=== PATIENT | female | born 1995 | race Native Hawaiian/Other Pacific Islander ===

== ENCOUNTER 2020-11-28 18:43 | Inpatient (IN) | payer OTHER ==
[2020-11-28] MEDS ORDERED: OXYTOCIN 10 UNITS/ML VIAL ONE (20:26)
[2020-11-28] MEDS ORDERED: OXYTOCIN 30 UNITS in 0.9% NS 30 UNIT/500 ML INFUS.BAG IVPB ONE (20:27)
[2020-11-28 20:32] LABS: BASO % 0.3 % (0-2.0); EOS % 0.1 % (0-4.5); HEMATOCRIT 35.7 % (32.4-45.2); HEMOGLOBIN 11.7 GM/dL (10.7-15.3); LYMPH % 15.7 % (8-40); MCH 26.5 pg (25.7-33.7); MCHC 32.8 g/dl (32.0-36.0); MEAN CELL VOLUME 80.8 fl (80-96); MEAN PLT VOLUME 7.3 fl (7.5-11.1); MONO % 6.8 % (3.8-10.2); NEUT % 77.1 % (42.8-82.8); PLATELET COUNT 350 10^3/uL (134-434); RBC 4.42 M/mm3 (3.60-5.2)
[2020-11-28 20:39] LABS: INR 1.02 (0.83-1.09); PROTHROMBIN TIME (PATIENT) 12.3 SEC (9.7-13.0)
[2020-11-28 20:41] LABS: ACTIVATED PTT 32.4 SECONDS (25.2-36.5)
[2020-11-28 20:55] LABS: CALCIUM 8.6 mg/dL (8.5-10.1)
[2020-11-28 20:56] LABS: BLOOD UREA NITROGEN 8.3 mg/dL (7-18)
[2020-11-28 20:59] LABS: CREATININE 0.6 mg/dL (0.55-1.3)
[2020-11-28] MEDS ORDERED: CITRIC ACID/SODIUM CITRATE 30 ML UNIT-DOSE CUP PO ONE (21:03)
[2020-11-28] MEDS ORDERED: ELECTROLYTE-148 SOLN 500 ML IV ONE (21:03)
[2020-11-28] MEDS ORDERED: ELECTROLYTE-148 SOLN 1,000 ML IV SCH (21:15)
[2020-11-28] MEDS ORDERED: OXYTOCIN 20 UNITS in 0.9% NS 20 UNIT/1,000 ML INFUS.BAG IV ONE (22:37)
[2020-11-28] MEDS ORDERED: SENNOSIDES/DOCUSATE COMBO (SENNA PLUS) TABLET (UD) PO PRN (22:42)
[2020-11-28] MEDS ORDERED: METHYLERGONOVINE MALEATE 0.2 MG/1 ML AMP IM PRN (22:42)
[2020-11-28] MEDS ORDERED: oxyCODONE HCL 5 MG TABLET PO PRN (22:42)
[2020-11-28] MEDS ORDERED: ACETAMINOPHEN 325 MG TABLET (FP) PO PRN (22:42)
[2020-11-29] MEDS: OXYTOCIN 20 UNITS in 0.9% NS 20 UNIT/1,000 ML INFUS.BAG IV SCH ×2 (00:06→08:00)
[2020-11-29] MEDS ORDERED: IBUPROFEN 800 MG/8 ML IJ IVPB ONE (00:43)
[2020-11-29] MEDS ORDERED: SODIUM CHLORIDE 100 ML IVPB ONE (00:44)
[2020-11-29] MEDS: IBUPROFEN 800 MG/8 ML IJ IVPB PRN ×2 (00:48→06:27)
[2020-11-29 04:13] LABS: HIV INTERPRETATION NEGATIVE (NEGATIVE)
[2020-11-29 08:45] LABS: BASO % 0.2 % (0-2.0); EOS % 0.1 % (0-4.5); HEMATOCRIT 31.4 % (32.4-45.2); HEMOGLOBIN 10.5 GM/dL (10.7-15.3); LYMPH % 8.7 % (8-40); MCHC 33.5 g/dl (32.0-36.0); MEAN CELL VOLUME 80.6 fl (80-96); MONO % 6.4 % (3.8-10.2); NEUT % 84.6 % (42.8-82.8); PLATELET COUNT 278 10^3/uL (134-434); RBC 3.89 M/mm3 (3.60-5.2); RDW 14.4 % (11.6-15.6)
[2020-11-29] MEDS: PRENATAL VITAMINS W/ FOLIC ACID TABLET (FP) PO SCH (11:13)
[2020-11-29] MEDS: oxyCODONE HCL 5 MG TABLET PO PRN ×2 (14:15→17:55)
[2020-11-29] MEDS: SIMETHICONE 80 MG TAB.CHEW (FP) PO PRN (20:57)
[2020-11-29] MEDS ORDERED: BISACODYL 10 MG SUPP.RECT RC PRN (22:42)
[2020-11-30] MEDS: PRENATAL VITAMINS W/ FOLIC ACID TABLET (FP) PO SCH (09:20)
[2020-11-30] MEDS: SIMETHICONE 80 MG TAB.CHEW (FP) PO PRN (15:07)
[2020-11-30] MEDS: IBUPROFEN 600 MG TABLET (FP) PO PRN (15:07)
[2020-12-01] MEDS: IBUPROFEN 600 MG TABLET (FP) PO PRN (08:46)
[2020-12-01] MEDS: SIMETHICONE 80 MG TAB.CHEW (FP) PO PRN (08:47)
[2020-12-01] MEDS: PRENATAL VITAMINS W/ FOLIC ACID TABLET (FP) PO SCH (10:29)
[2020-12-01 12:33] VITALS: BP 96/64; PULSE 86; TEMP 98.3
== END 2020-12-01 11:55 | disposition home or self-care (01) | DRG 540 ==
LOC: JLDR 18:43 → JDEL 19:32 → EDSTATUS 20:02 → J3W 11-29 00:29
PROVIDERS: ADMIT Obstetrics & Gynecology; ATTEND Obstetrics & Gynecology
PROC: 10D00Z1 Extraction of Products of Conception, Low, Open Approach (ICD-10-PCS; principal; 2020-11-28)
DX: O34.219 Maternal care for unspecified type scar from previous cesarean delivery (principal); Z3A.39 39 weeks gestation of pregnancy; Z37.0 Single live birth
CPT/HCPCS: 36415; 80048; 85025; 85610; 85730; 86780; 86850; 86880; 86900; 86901; 87389; 88307-TC; C9803; U0003; U0005

== ENCOUNTER 2022-07-01 10:10 | Inpatient (IN) | payer OTHER ==
[2022-07-01] MEDS ORDERED: CITRIC ACID/SODIUM CITRATE 30 ML UNIT-DOSE CUP PO ONE ×2 (11:45→14:27)
[2022-07-01] MEDS ORDERED: ELECTROLYTE-148 SOLN 1,000 ML IV SCH ×2 (11:45→14:30)
[2022-07-01] MEDS ORDERED: ELECTROLYTE-148 SOLN 1,000 ML IV ONE (11:45)
[2022-07-01 12:13] VITALS: BMI 28.5
[2022-07-01] MEDS ORDERED: ELECTROLYTE-148 SOLN 500 ML IV ONE (14:27)
[2022-07-01] MEDS: OXYTOCIN 20 UNITS in 0.9% NS 20 UNIT/1,000 ML INFUS.BAG IV SCH (15:30)
[2022-07-01] MEDS ORDERED: OXYTOCIN 30 UNITS in 0.9% NS 30 UNIT/500 ML INFUS.BAG IVPB ONE (15:56)
[2022-07-01] MEDS ORDERED: FENTANYL CITRATE/PF 50 MCG/ML VIAL ONE (16:09)
[2022-07-01] MEDS ORDERED: morphine SULFATE/PF 1 MG/2 ML (2cc Syringe - QUVA) ONE (16:09)
[2022-07-01] MEDS ORDERED: SENNOSIDES/DOCUSATE COMBO (SENNA PLUS) TABLET (UD) PO PRN (17:29)
[2022-07-01] MEDS ORDERED: METHYLERGONOVINE MALEATE 0.2 MG/1 ML AMP IM PRN (17:29)
[2022-07-01] MEDS ORDERED: IBUPROFEN 800 MG/8 ML IJ IVPB PRN (17:29)
[2022-07-01] MEDS ORDERED: IBUPROFEN 800 MG/8 ML IJ IVPB ONE (19:35)
[2022-07-01] MEDS: ACETAMINOPHEN 325 MG TABLET (FP) PO PRN (23:33)
[2022-07-02] MEDS: OXYTOCIN 20 UNITS in 0.9% NS 20 UNIT/1,000 ML INFUS.BAG IV SCH (00:35)
[2022-07-02] MEDS ORDERED: oxyCODONE HCL 5 MG TABLET PO PRN ×2 (05:30)
[2022-07-02 06:30] VITALS: RESP 18
[2022-07-02] MEDS: ACETAMINOPHEN 325 MG TABLET (FP) PO PRN ×2 (08:00→20:35)
[2022-07-02 08:26] LABS: BASO % 0.5 % (0-2.0); HEMATOCRIT 29.2 % (32.4-45.2); HEMOGLOBIN 9.9 GM/dL (10.7-15.3); MCHC 33.7 g/dl (32.0-36.0); MEAN CELL VOLUME 83.1 fl (80-96); MEAN PLT VOLUME 7.5 fl (7.5-11.1); MONO % 7.9 % (3.8-10.2); NEUT % 76.6 % (42.8-82.8); PLATELET COUNT 260 10^3/uL (134-434); RBC 3.52 M/mm3 (3.60-5.2); RDW 12.9 % (11.6-15.6); WHITE BLOOD COUNT 14.3 K/mm3 (4.0-10.0)
[2022-07-02] MEDS: PRENATAL VITAMINS W/ FOLIC ACID TABLET (FP) PO SCH (10:03)
[2022-07-02] MEDS: SIMETHICONE 80 MG TAB.CHEW (FP) PO PRN ×3 (10:53→21:54)
[2022-07-02] MEDS: IBUPROFEN 600 MG TABLET (FP) PO PRN ×3 (10:53→21:54)
[2022-07-02] MEDS ORDERED: BISACODYL 10 MG SUPP.RECT RC PRN (17:30)
[2022-07-03] MEDS: IBUPROFEN 600 MG TABLET (FP) PO PRN ×3 (01:46→16:54)
[2022-07-03] MEDS: PRENATAL VITAMINS W/ FOLIC ACID TABLET (FP) PO SCH (09:26)
[2022-07-03] MEDS: SIMETHICONE 80 MG TAB.CHEW (FP) PO PRN ×2 (09:31→16:54)
[2022-07-03 21:05] VITALS: TEMP 98.7
[2022-07-04] MEDS: IBUPROFEN 600 MG TABLET (FP) PO PRN ×2 (01:53→06:40)
[2022-07-04] MEDS: SIMETHICONE 80 MG TAB.CHEW (FP) PO PRN ×2 (01:53→06:40)
[2022-07-04 09:19] VITALS: BP 102/68; PULSE 62
[2022-07-04] MEDS: PRENATAL VITAMINS W/ FOLIC ACID TABLET (FP) PO SCH (10:00)
== END 2022-07-04 13:22 | disposition home or self-care (01) | DRG 540 ==
LOC: JLDR 10:10 → J3W 20:38
PROVIDERS: ADMIT Obstetrics & Gynecology; ATTEND Obstetrics & Gynecology
PROC: 10D00Z1 Extraction of Products of Conception, Low, Open Approach (ICD-10-PCS; principal; 2022-07-01)
DX: O34.219 Maternal care for unspecified type scar from previous cesarean delivery (principal); Z3A.39 39 weeks gestation of pregnancy; Z37.0 Single live birth
CPT/HCPCS: 36415; 85025; 88307-TC